=== PATIENT | male | born 1950 | race Caucasian/White ===

== ENCOUNTER 2017-12-15 17:17 | Emergency (ER) | END 2017-12-15 20:20 | disposition short-term general hospital (02) ==

== ENCOUNTER 2018-05-27 18:18 | Emergency (ER) | payer MEDICARE, OTHER ==
[~2018-05-27] VITALS: Ht 177.8 cm; Wt 91.4 kg
[~2018-05-27 18:18] MED LIST: ALPR1TAB7 PO; ASPI-817 PO; ATOR-2 PO; ESCI20TA38 PO
[2018-05-27 18:59] VITALS: BP 148/80; PULSE 68; RESP 20; Ht 177.8 cm; Wt 91.4 kg
[2018-05-27] MEDS ORDERED: ALPR1TAB2 PO (19:45)
--- NOTE | 2018-05-27 19:48 | ERD ---
ER Documentation Chief Complaint Chief Complaint med refill for alprazolam HPI 68-year-old male presents with a request for a short course of a refill for Xanax. He usually gets it from his primary doctor but his insurance insisted that he change pharmacies and the recent refill did not transfer from old to new pharmacy. He is requesting four pills as he takes two 1 mg pills nightly for PTSD and anxiety. He has an appointment on Tuesday to get his regular refill. ROS All systems reviewed and are negative except as per history of present illness. Medications Home Meds Active Scripts Alprazolam* (Xanax*) 1 Mg Tab, 2 MG PO QHS, #4 TAB Prov:KIP CHANEY MD 05/27/18 Reported Medications Aspirin* (Aspirin* EC) 81 Mg Tablet.dr, 81 MG PO DAILY, TAB 12/15/17 Atorvastatin* (Atorvastatin*) 80 Mg Tablet, 80 MG PO QHS, #30 TAB 12/15/17 Escitalopram Oxalate* (Escitalopram Oxalate*) 20 Mg Tablet, 40 MG PO QPM, #30 TAB 12/15/17 Alprazolam* (Alprazolam*) 1 Mg Tablet, 2 MG PO QHS PRN for ANXIETY, TAB 12/15/17 Allergies Allergies: Coded Allergies: No Known Allergy (Unverified , 12/15/17) PMhx/Soc History of Surgery: Yes (Triple bypass) Anesthesia Reaction: No Hx Neurological Disorder: No Hx Respiratory Disorders: No Hx Cardiac Disorders: No Hx Psychiatric Problems: No Hx Miscellaneous Medical Probl: No Hx Alcohol Use: No Hx Substance Use: No Hx Tobacco Use: No FmHx Family History: No diabetes, No coronary disease, No other Physical Exam Vitals Vital Signs Date Temp Pulse Resp B/P (MAP) Pulse Ox O2 O2 Flow FiO2 Time Delivery Rate 05/27/18 98.5 68 20 148/80 98 18:59 (102) Physical Exam Const: No acute distress. Pleasant, [id number]. Head: Atraumatic Eyes: Normal Conjunctiva ENT: Normal External Ears, Nose and Mouth. Neck: Full range of motion. No meningismus. Resp: Clear to auscultation bilaterally Cardio: Regular rate and rhythm, no murmurs Abd: Soft, non tender, non distended. Normal bowel sounds Skin: No petechiae or rashes Back: No midline or flank tenderness Ext: No cyanosis, or edema Neur: Awake and alert Psych: Normal Mood and Affect Procedures/MDM Cures review shows regular 90-day refills from same provider. Patient presents with a refill request until he can see his primary doctor for his once daily Xanax for PTSD. He has no current signs of withdrawal or ill appearance. He has no history of abnormalities on his cures review of doctor shopping. Patient will be given prescription for #4 1 mg Xanax until he can see his primary doctor on Tuesday. The patient was stable with no new complaints during the ER course. Clinically, there is no current evidence to suggest meningitis, sepsis, acute abdomen, pneumonia, stroke, acute coronary syndrome, pulmonary embolism, aortic dissection or any other emergent condition appearing to require further evaluation or hospitalization. Patient counseled regarding my diagnostic impression and care plan. Prior to discharge all questions answered. Pt agrees with treatment plan and understands strict return precautions. Pt is instructed to follow up with primary care provider within 24- 48 hours. Precautionary instructions provided including instructions to return to the ER if not improving or for any worsening or changing symptoms or concerns. Departure Diagnosis: Primary Impression: Encounter for medication refill Condition: Stable Patient Instructions: Taking Medicine Safely Additional Instructions: Recheck with primary doctor as scheduled. KIP CHANEY MD May 27, 2018 19:48
== END 2018-05-27 19:52 | disposition home or self-care (01) ==
LOC: FTE 18:18
DX: Z76.0 Encounter for issue of repeat prescription (principal)
CPT/HCPCS: 99281

== ENCOUNTER 2018-10-27 18:53 | Emergency (ER) | payer MEDICARE, OTHER ==
[~2018-10-27] VITALS: Ht 188 cm; Wt 92.6 kg
[~2018-10-27 18:53] MED LIST changes: +ALPR1TAB2 PO; +CIPR500T4 PO
[2018-10-27 19:15] VITALS: Ht 188 cm; Wt 92.6 kg
[2018-10-27] MEDS ORDERED: ACETAMINOPHEN 325 MG TAB PO ONE (20:00)
[2018-10-27] MEDS ORDERED: CIPROFLOXACIN 500 MG TAB PO ONE (21:00)
[2018-10-27 21:20] VITALS: BP 113/81; PULSE 83; RESP 18
== END 2018-10-27 21:57 | disposition home or self-care (01) ==
LOC: E/R 18:53
DX: N30.91 Cystitis, unspecified with hematuria (principal); F17.210 Nicotine dependence, cigarettes, uncomplicated; I25.10 Atherosclerotic heart disease of native coronary artery without angina pectoris; Z79.82 Long term (current) use of aspirin
CPT/HCPCS: 80053; 81001; 81003; 83605; 84484; 85025; 85610; 85730; 87086; 87591; 93005